=== PATIENT | male | born 1995 | race Hispanic/Latino ===

== ENCOUNTER 2018-07-04 02:28 | Emergency (ER) | payer OTHER ==
[~2018-07-04] VITALS: Ht 175.3 cm; Wt 74.8 kg
== END 2018-07-04 03:42 | disposition home or self-care (01) ==
LOC: ER 02:28
DX: R00.2 Palpitations (principal)
CPT/HCPCS: 99283

== ENCOUNTER 2020-02-23 20:32 | Emergency (ER) | payer OTHER ==
[~2020-02-23] VITALS: Ht 172.7 cm; Wt 77.1 kg
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
--- NOTE | 2020-02-23 23:00 | NUR ---
MD APPLIED ORTHO GLASS SPLINT. PT TOLERATED WELL
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
[2020-02-23 23:29] VITALS: BP 120/72
== END 2020-02-23 23:29 | disposition home or self-care (01) ==
LOC: FSED 20:32
DX: M25.532 Pain in left wrist (principal); S52.502A Unspecified fracture of the lower end of left radius, initial encounter for closed fracture; S52.602A Unspecified fracture of lower end of left ulna, initial encounter for closed fracture; V43.52XA Car driver injured in collision with other type car in traffic accident, initial encounter; Y92.488 Other paved roadways as the place of occurrence of the external cause
CPT/HCPCS: 71045